=== PATIENT | female | born 1990 | race Caucasian/White ===

== ENCOUNTER 2019-06-06 12:13 | Outpatient (CLI) | payer OTHER, SELFPAY ==
--- NOTE | 2019-06-06 | US_ITS ---
WS: [id number] EARLY OBSTETRICAL ULTRASOUND (<14 WEEKS). HISTORY: DATING COMPARISON: None available. Twin intrauterine gestational sac identified. Thick membrane. Twin A: Sac is inferior to the LEFT. [place]-rump length 1.16 cm corresponds to gestation of 7 weeks 2 days. Normal cardiac activity at 160 bpm. No subchorionic hemorrhage. Twin B: Sac is superior to the RIGHT. [place]-rump length 1.2 cm this corresponds to gestation of 7 wee ks and 3 days. Normal cardiac activity at 157 bpm. No subchorionic hemorrhage. Cervix is closed. No free fluid. Neither ovary is identified. 2. Twin A: 7 weeks 2 days with an EDC of 01/21/2020. 3. Twin B: 7 weeks 3 days with an EDC of 01/20/2020. US/US OB transvaginal [id number] IMPRESSION: 1. Twin intrauterine gestations.
--- NOTE | 2019-06-06 12:45 | US_ITS ---
WS: [id number] EARLY OBSTETRICAL ULTRASOUND (<14 WEEKS). HISTORY: DATING COMPARISON: None available. Twin intrauterine gestational sac identified. Thick membrane. Twin A: Sac is inferior to the LEFT. [place]-rump length 1.16 cm corresponds to gestation of 7 weeks 2 days. Normal cardiac activity at 160 bpm. No subchorionic hemorrhage. Twin B: Sac is superior to the RIGHT. [place]-rump length 1.2 cm this corresponds to gestation of 7 wee ks and 3 days. Normal cardiac activity at 157 bpm. No subchorionic hemorrhage. Cervix is closed. No free fluid. Neither ovary is identified. 2. Twin A: 7 weeks 2 days with an EDC of 01/21/2020. 3. Twin B: 7 weeks 3 days with an EDC of 01/20/2020. US/US OB <= 14 wk fetus twins IMPRESSION: 1. Twin intrauterine gestations.
== END 2019-06-06 12:14 | disposition home or self-care (01) ==
LOC: RADWPI 12:21
PROVIDERS: Family Provider Nurse Practitioner Family; PCP Family Medicine; Visit Provider Family Medicine
DX: Z87.59 Personal history of other complications of pregnancy, childbirth and the puerperium (principal); O30.031 Twin pregnancy, monochorionic/diamniotic, first trimester; Z3A.01 Less than 8 weeks gestation of pregnancy
CPT/HCPCS: 76801; 76802; 76817

== ENCOUNTER → 2020-09-03 10:39 | Outpatient (BNVA) | payer OTHER, SELFPAY | PROVIDERS: Family Provider Nurse Practitioner Family; PCP Family Medicine; Visit Provider Nurse Practitioner Family | DX: R39.9 Unspecified symptoms and signs involving the genitourinary system (principal) | CPT/HCPCS: 81000 ==

== ENCOUNTER 2022-01-07 19:00 | Emergency (ER) | payer OTHER, BC, SELFPAY ==
[2022-01-07 19:14] VITALS: BP 167/83; PULSE 88; RESP 18; TEMP 35.9; O2SAT 99; BMI 64.9
--- NOTE | 2022-01-07 19:18 | ECG_ITS ---
[facility] Test Date: 2022-01-07 Pat Name: Cherie Fisher Department: Room: Gender: Female [employer] Supervisor: : [id number] Requested By: Dm Costello Order Number: [id number] Jp MD: Kathrine Herrera M.D. Measurements Intervals [place] Rate: 84 P: 29 NM: 158 QRS: 48 QRSD: 97 T: 44 QT: 353 QTc: 418 Interpretive Statements SINUS RHYTHM No previous ECG available for comparison Electronically Signed On 01-08-2022 5:25:03 [email or web address] by Kathrine Herrera M.D. [id number]
== END 2022-01-07 21:35 | disposition left against medical advice (07) ==
PROVIDERS: Emergency Provider Emergency Medicine; PCP Family Medicine
DX: Z53.21 Procedure and treatment not carried out due to patient leaving prior to being seen by health care provider (principal)
CPT/HCPCS: 93005; 99283

== ENCOUNTER → 2022-07-25 15:11 | Outpatient (BNVA) | payer OTHER, SELFPAY | PROVIDERS: PCP Family Medicine; Visit Provider Nurse Practitioner Family | DX: R30.9 Painful micturition, unspecified (principal); N10 Acute pyelonephritis | CPT/HCPCS: 81000; 87086 ==